=== PATIENT | female | born 1995 | race Hispanic/Latino ===

== ENCOUNTER 2024-09-29 21:26 | Emergency (ER) | payer OTHER ==
[2024-09-29 22:41] LABS: Specific Gravity 1.014 (1.005-1.030)
[2024-09-29 22:42] LABS: Specific Gravity 1.014 (1.005-1.030); Sqamous Epithelial <5 /HPF (None Seen); Urine Bacteria <20 /HPF (<20); Urine Bilirubin NEGATIVE (Negative); Urine Blood 2+ (Negative); Urine Clarity Clear (Clear); Urine Color Light-Yellow (Yellow); Urine Culture Reflex Order REFLEXED; Urine Glucose NEGATIVE (Negative); Urine Ketones NEGATIVE (Negative); Urine Microscopic Reflex YN ORDER UMIC; Urine Mucus Slight /HPF (None Seen); Urine Nitrite NEGATIVE (Negative); Urine Protein NEGATIVE (Negative); Urine RBC >50 /HPF (None Seen); Urine Urobilinogen Normal (Normal); Urine WBC <5 /HPF (<5)
[2024-09-29 22:45] LABS: Absolute Basophils 0.1 K/uL (0-0.5); Absolute Eosinophils 0.1 K/uL (0-0.5); Absolute Lymphocytes (CBC) 2.7 K/uL (0.7-4.9); Absolute Monocytes 0.8 K/uL (0.1-1.3); Basophils % 0.7 % (0-1.3); Eosinophils % 0.4 % (0-4.4); Hematocrit 34.9 % (36.0-45.0); Hemoglobin 11.6 g/dL (12.0-15.0); Lymphocytes % 22.9 % (15.3-44.8); MCH 24.3 pg (27.0-35.0); MCHC 33.2 g/dL (32.0-36.0); MCV 73.2 fL (80-100); MPV 8.8 fL (7.6-11.3); Monocytes % 7.2 % (3.3-12.3); Neutrophils % 68.8 % (41.7-73.7); Platelets 260 thou/uL (152-406); RBC Red Blood Cell Count 4.77 M/uL (3.86-4.86); Red Cell Distribution Width 16.4 % (12.1-15.2)
[2024-09-29 23:06] LABS: Anion Gap 8.2 mEq/L (5.0-15.0); Potassium 3.2 mEq/L (3.5-5.1)
--- NOTE | 2024-09-29 23:37 | EDPHYS ---
Physician Documentation [facility] Name: Nathan Edwards Age: 29 yrs Sex: Female : 1995 Arrival Date: 09/29/2024 Time: 21:26 Bed 13 Private MD: ED Physician Peterson Hamilton HPI: 09/29 22:45 This 29 yrs old Female presents to ER via Ambulatory with complaints of sb4 Vaginal Bleeding, Abdominal Cramping. 22:45 The patient presents to the emergency department with vaginal bleeding, that is sb4 moderate. The estimated gestational age is 4 weeks. 22:56 Previous pregnancies: in previous pregnancies patient has had . vaginal sb4 bleeding that began this evening while eating dinner. no clots. approx 4 weeks . mild lower left abd cramping. 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 - Infectious Disease History:: Denies. - Social history:: Smoking status: Reported history of juuling and/or vaping. ROS: 22:56 Constitutional: Negative for fever, chills, and weight loss, sb4 22:56 : Positive for vaginal bleeding, menstrual abnormality, 22:56 All other systems are negative, Exam: 22:56 Constitutional: This is a well developed, well nourished patient who is awake, alert, sb4 and in no acute distress. Head/Face: Normocephalic, atraumatic. Eyes: Extra-ocular motions intact. Periorbital areas with no swelling, redness, or edema. ENT: Mucous membranes moist. Cardiovascular: Regular rate and rhythm with a normal S1 and S2. Respiratory: No increased work of breathing, no retractions or nasal flaring. Abdomen/GI: Soft, non-tender, no distension. Skin: Warm, dry with normal turgor. Normal color with no rashes, no lesions, and no evidence of cellulitis. Vital Signs: 21:43 BP 124 / 78; Pulse 83; Resp 18; Temp 98.4; Pulse Ox 100% ; Weight 83.91 kg; Height 5 cp4 ft. 2 in. ; Pain 4/10; 22:02 BP 114 / 78; Pulse 84; Resp 17; Pulse Ox 100% on R/A; Pain 3/10; rg5 21:43 Body Mass Index 33.84 (83.91 kg, 157.48 cm) cp4 21:43 Pain Scale: Adult cp4 22:02 Pain Scale: Adult rg5 MDM: 21:43 Medical Screening Exam initiated sb4 09/30 00:27 Data reviewed: vital signs, nurses notes, lab test result(s), radiologic studies, and sb4 as a result, I will discharge patient. Counseling: I had a detailed discussion with the patient and/or guardian regarding the historical points, exam findings, and any diagnostic results supporting the discharge/admit diagnosis, lab results, radiology results, the need for outpatient follow up, an OB/Gyne specialist, to return to the emergency department if symptoms worsen or persist or if there are any questions or concerns that arise at home. 09/29 21:59 Order name: Basic Metabolic Panel; Complete Time: 23:09 sb4 09/29 21:59 Order name: CBC with Diff; Complete Time: 22:52 sb4 09/29 21:59 Order name: Test, Urine; Complete Time: 22:43 sb4 09/29 21:59 Order name: Quantitative Hcg; Complete Time: 23:09 sb4 09/29 21:59 Order name: Urinalysis w/ reflexes; Complete Time: 23:09 sb4 09/29 23:10 Order name: Urine Culture EDCO 09/29 22:18 Order name: Transvaginal OB EDCO 09/29 21:59 Order name: IV Saline Lock; Complete Time: 22:30 sb4 09/29 21:59 Order name: Labs collected and sent; Complete Time: 22:30 sb4 Administered Medications: No medications were administered Disposition Summary: 09/29/24 23:37 Discharge Ordered Notes: Location: Home sb4 Problem: new sb4 Symptoms: have improved sb4 Condition: Stable sb4 Diagnosis - Threatened sb4 Followup: sb4 - With: Private Physician - When: 48 Hours - Reason: Repeat Beta-HCG (48 Hours) Discharge Instructions: - Discharge Summary Sheet sb4 - Threatened Miscarriage sb4 - Subchorionic Hematoma sb4 Forms: - Patient Portal Instructions sb4 - Leadership Thank You Letter sb4 Addendum: 10/02/2024 08:51 Co-signature as Attending Physician, Peterson Hamilton MD I agree with the assessment and c german plan of care. Signatures: Dispatcher [employer] EDMS Peterson Hamilton MD MD cha Brown, Sophia, PA-C PA-C sb4 Anamika Jara cp4 Corrections: (The following items were deleted from the chart) 09/29 21:59 21:59 BASIC METABOLIC PANEL+C.LAB.BRZ ordered. EDMS EDMS 21:59 21:59 CBC+H.LAB.BRZ ordered. EDMS EDMS 21:59 21:59 Test, Urine+UC.LAB.BRZ ordered. EDMS EDMS 21:59 21:59 QUANTITATIVE HCG+C.LAB.BRZ ordered. EDMS EDMS 21:59 21:59 Urinalysis+U.LAB.BRZ ordered. EDMS EDMS 21:59 21:59 Transvaginal Ob+US.RAD.BRZ ordered. EDMS EDMS
--- NOTE | 2024-09-29 23:37 | ER ---
Nurse's Notes [facility] Name: Nathan Edwards Age: 29 yrs Sex: Female : 1995 Arrival Date: 09/29/2024 Time: 21:26 Bed 13 Private MD: Diagnosis: Threatened Presentation: 09/29 21:43 Chief complaint: Patient states: took a test two days ago and was positive cp4 and has been having bleeding that started two hours ago. Coronavirus screen: Client denies travel out of the [place] in the last 14 days. At this time, the client does not indicate any symptoms associated with coronavirus-19. Ebola Screen: Patient negative for fever greater than or equal to 101.5 degrees Fahrenheit, and additional compatible Ebola Virus Disease symptoms Patient denies exposure to infectious person. Patient denies travel to an Ebola-affected area in the 21 days before illness onset. No symptoms or risks identified at this time. Initial Sepsis Screen: Does the patient meet any 2 criteria? No. Patient's initial sepsis screen is negative. Does the patient have a suspected source of infection? No. Patient's initial sepsis screen is negative. Risk Assessment: Do you want to hurt yourself or someone else? Patient reports no desire to harm self or others. Onset of symptoms was September 29, 2024 at 19:45. 21:43 Method Of Arrival: Ambulatory cp4 21:43 Acuity: KEVIN 3 cp4 Triage Assessment: 21:45 General: Appears in no apparent distress. comfortable, Behavior is calm, cooperative, cp4 appropriate for age. Pain: Complains of pain in abdomen Pain currently is 4 out of 10 on a pain scale. : Reports vaginal bleeding that is bright red, light flow. 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 - Infectious Disease History:: Denies. - Social history:: Smoking status: Reported history of juuling and/or vaping. Screenin:00 [facility] ED Fall Risk Assessment (Adult) History of falling in the last 3 months, rg5 including since admission No falls in past 3 months (0 pts) Confusion or Disorientation No (0 pts) Intoxicated or Sedated No (0 pts) Impaired Gait No (0 pts) Mobility Assist Device Used No (0 pt) Altered Elimination No (0 pt) Score/Fall Risk Level 0 - 2 = Low Risk Oriented to surroundings, Maintained a safe environment, Educated pt \T\ family on fall prevention, incl call for assistance when getting out of bed, Hourly rounding (assess needs \T\ fall precautionary measures) done. Abuse screen: Denies threats or abuse. 22:00 Nutritional screening: No deficits noted. Tuberculosis screening: No symptoms or risk rg5 factors identified. Assessment: 22:00 General: Appears in no apparent distress. comfortable, Behavior is calm, cooperative, rg5 appropriate for age. Pain: Denies pain. Neuro: Level of Consciousness is awake, alert, Oriented to person, place, time. Cardiovascular: Denies chest pain, Patient's skin is warm and dry. Respiratory: Airway is patent Respiratory effort is even, unlabored. GI: Abdomen is round Reports cramping. : Reports vaginal bleeding that is bright red, light flow, spotty. EENT: No deficits noted. Derm: Skin is intact, Skin is dry, Skin is normal, Skin temperature is warm. Musculoskeletal: Circulation, motion, and sensation intact. Range of motion: intact in all extremities. 23:00 Reassessment: No changes from previously documented assessment. Patient and/or family rg5 updated on plan of care and expected duration. Pain level reassessed. Patient is alert, oriented x 3, equal unlabored respirations, skin warm/dry/pink. 09/30 00:00 Reassessment: No changes from previously documented assessment. Patient and/or family rg5 updated on plan of care and expected duration. Pain level reassessed. Patient is alert, oriented x 3, equal unlabored respirations, skin warm/dry/pink. Vital Signs: 09/29 21:43 BP 124 / 78; Pulse 83; Resp 18; Temp 98.4; Pulse Ox 100% ; Weight 83.91 kg; Height 5 cp4 ft. 2 in. ; Pain 4/10; 22:02 BP 114 / 78; Pulse 84; Resp 17; Pulse Ox 100% on R/A; Pain 3/10; rg5 21:43 Body Mass Index 33.84 (83.91 kg, 157.48 cm) cp4 21:43 Pain Scale: Adult cp4 22:02 Pain Scale: Adult rg5 ED Course: 21:34 Patient arrived in ED. gm2 21:41 Camila Hernandez PA-C is PHCP. sb4 21:41 Peterson Hamilton MD is Attending Physician. sb4 21:45 Triage completed. cp4 21:45 Arm band placed on right wrist. Patient placed in waiting room. cp4 21:52 Elvis Madison, BOBBY is Primary Nurse. rg5 22:00 Patient has correct armband on for positive identification. Door closed. Noise rg5 minimized. 22:00 No provider procedures requiring assistance completed. Inserted saline lock: 20 gauge rg5 in right antecubital area, using aseptic technique. Blood collected. Flushed with 10 mL NS. 22:33 Transvaginal OB In Process Unspecified. EDMS 09/30 00:05 Provided Education on: post er care done. rg5 00:05 IV discontinued, bleeding controlled, No redness/swelling at site. Pressure dressing rg5 applied. Administered Medications: No medications were administered Medication: 00:05 VIS not applicable for this client. rg5 Outcome: 09/29 23:37 Discharge ordered by . sb4 09/30 00:03 Discharged to home ambulatory, rg5 00:03 Condition: stable rg5 00:03 Discharge instructions given to patient, family, Instructed on discharge instructions, 00:06 Patient left the ED. rg5 Signatures: Dispatcher [employer] [facility] Camila Hernandez PA-C PA-C sb4 Anamika Jara 4 Ann Marie Causey 2 Elvis Madison, RN RN rg5
[2024-09-30 00:21] VITALS: TEMP 98.4; O2SAT 100
[2024-09-30 00:23] VITALS: BP 114/78
--- NOTE | 2024-09-30 07:14 | RAD REPORT ---
EXAM: US , Transvaginal CLINICAL HISTORY: The patient is 29 years old and is Female; BLEEDING TECHNIQUE: Real-time transvaginal obstetrical ultrasound of the maternal pelvis and a first trimester pregnanc y with image documentation. Transvaginal imaging was used for better evaluation of the fetus and adnexa. COMPARISON: No relevant prior studies available. FINDINGS: GESTATION: A single intrauterine gestational sac is present correlating to approximately 6 weeks 1 day. A pole and yolk sac are not seen. PLACENTA/AMNIOTIC FLUID: A large subchorionic hemorrhage measuring approximately 2.7 x 1.6 x 2.5 cm is present. UTERUS/CERVIX: Unremarkable. No myometrial mass. OVARIES: The right ovary measures 4.1 x 2.5 x 2.3 cm. The left ovary measures 3.1 x 1.9 x 1.5 cm. No mass. FREE FLUID: No free fluid. IMPRESSION: 1. Single intrauterine gestational sac correlating to 6 weeks 1 day. A pole and yolk sac are not seen. Within the differential is a very early intrauterine and failed first trimester . Recommend close continued follow-up with serial hCG and ultrasound. 2. Large subchorionic hemorrhage. Recommend attention on follow-up. Electronically signed by: Sole Chen MD 09/29/2024 11:05 PM CDT RP Due to temporary technical issues with the PACS/Thirsty reporting system, reports are being kayleigh d by the in-house radiologist without review as a courtesy to ensure prompt reporting the interpreting radiologist is fully responsible for the content of the report. Transcribed Date/Time: 09/30/2024 7:13 AM
== END 2024-09-30 00:06 | disposition home or self-care (01) ==
LOC: ER 21:26
DX: O20.0 Threatened abortion (principal); Z3A.01 Less than 8 weeks gestation of pregnancy
CPT/HCPCS: 36415; 76817; 80048; 81001; 81025; 84702; 85025; 87086; 87088